=== PATIENT | male | born 1990 | race African-American/Black ===

== ENCOUNTER 2020-04-29 22:56 | Emergency (ER) | payer BC, OTHER ==
[2020-04-29 23:11] VITALS: BP 138/90; PULSE 76; TEMP 97; BMI 27.8
--- NOTE | 2020-04-29 23:43 | PDOC ---
History of Present Illness - General Chief Complaint: Penile Drainage Stated Complaint: EVALUATION Time Seen by Provider: 04/29/20 23:18 History Source: Patient Exam Limitations: No Limitations - History of Present Illness Travel History: No Initial Comments: 04/29/20 23:40 HISTORY OF PRESENT ILLNESS: 30-year-old male presents emergency department for treatment of exposure to syphilis. Patient reports his significant other delivered a child today and was told that she had tested positive for T palladium. RPR confirmatory testing is in progress. Patient denies symptoms. No recent travel or sick contacts. PAST MEDICAL HISTORY: Childhood asthma SURGICAL HISTORY: Denies ALLERGIES: No known drug allergies; seafood REVIEW OF SYSTEMS General/Constitutional: Denies fever or chills. Denies weakness, weight change. HEENT: Denies change in vision. Denies ear pain or discharge. Denies sore throat. Cardiovascular: Denies chest pain or shortness of breath. Respiratory: Denies cough, wheezing, or hemoptysis. Gastrointestinal: Denies nausea, vomiting, diarrhea or constipation. Denies rectal bleeding. Genitourinary: Denies dysuria, frequency, or change in urination. Musculoskeletal: Denies joint or muscle swelling or pain. Denies neck or back pain. Skin and breasts: Denies rash or easy bruising. Neurologic: Denies headache, vertigo, loss of consciousness, or loss of sensation. Psychiatric: Denies depression or anxiety. Endocrine: Denies increased thirst. Denies abnormal weight change. Hematologic/Lymphatic: Denies anemia, easy bleeding, or history of blood clots. Allergic/Immunologic: Denies hives or skin allergy. Denies latex allergy. PHYSICAL EXAM General Appearance: Well-appearing, appropriately dressed. No apparent distress, no intoxication. Genital: Circumcised penis. No discharge or drainage present. No testicular lesions noted. Lymphatic: No adenopathy, tenderness. Past History - Medical History Allergies/Adverse Reactions: Allergies Allergy/AdvReac Type Severity Reaction Status Date / Time SEAFOOD Allergy Uncoded 04/29/20 23:10 Home Medications: Ambulatory Orders Albuterol 0.083% Nebulizer Colleen [Ventolin 0.083% Nebulizer Soln -] 1 neb NEB ONCE PRN #30 neb 04/09/13 Albuterol Sulfate Inhaler - [Ventolin HFA Inhaler -] 1 - 2 inh IH Q4H PRN #1 inhaler 04/09/13 Albuterol Sulfate Inhaler - [Ventolin Hfa *Inhaler*] 2 inh IH Q4H 04/09/13 Beclomethasone Dipropionate 0.25 gm MC BID #1 powder 04/09/13 Diphenhydramine HCl [Benadryl Capsules -] 25 mg PO TID 04/09/13 Asthma: Yes COPD: No - Immunization History Td Vaccination: Yes Immunization Up to Date: Yes - Psycho-Social/Smoking History Smoking Status: No Smoking History: Never smoked Number of Cigarettes Smoked Daily: 0 - Substance Abuse Hx (Audit-C & DAST Scrn) How often the patient has a drink containing alcohol: 2-3 times / week Score: In Men: 4 or > Positive; In Women: 3 or > Positive: 3 Screen Result (Pos requires Nsg. Audit-10AR): Negative *Physical Exam - Vital Signs Last Vital Signs Temp Pulse Resp BP Pulse Ox 97 F L 76 18 138/90 99 04/29/20 23:06 04/29/20 23:06 04/29/20 23:06 04/29/20 23:06 04/29/20 23:06 Medical Decision Making - Medical Decision Making 04/29/20 23:39 A/P: 30-year-old male with STD exposure Patient is requesting treatment for syphilis given known exposure but is requesting additional treatment for gonorrhea and chlamydia at this time. RPR with reflex, HIV, GC Discharge home Portions of this note have been documented using voice recognition software. As a result, errors may occur in the marine propulsion technician process. Effort has been made to correct all grammatical and marine propulsion technician error, but some may have been missed which may produce sporadic inaccurate marine propulsion technician or nonsensical phrases. Discharge - Discharge Information Problems reviewed: Yes Clinical Impression/Diagnosis: Concern about STD in male without diagnosis Condition: Stable Disposition: HOME - Admission No - Follow up/Referral - Patient Discharge Instructions Additional Instructions: You been treated today with azithromycin 1 g by mouth for treatment of presumed chlamydia You have been treated with Rocephin 250 mg injection for treatment of presumned gonorrhea The syphilis test, gonorrhea and chlamydia testing will not be completed for the next few days. You may call [phone] and leave message for return phone call with lab results. Be sure to be clear with your name, birthdate, and phone number Always use condoms with the partners Followup with STAFF PHARMACIST or PMD in one week for reevaluation and retesting. - Post Discharge Activity
[2020-04-29] MEDS ORDERED: AZITHROMYCIN 250 MG TABLET ONE (23:50)
[2020-04-29] MEDS ORDERED: cefTRIAXone SODIUM 1 GM VIAL ONE (23:51)
[2020-04-30] MEDS ORDERED: PENICILLIN G BENZATHINE 2,400,000 UNIT/4 ML PFS IM ONE
[2020-04-30] MEDS ORDERED: AZITHROMYCIN 250 MG TABLET PO ONE
[2020-04-30] MEDS ORDERED: LIDOCAINE HCL 1%, 10 MG/ML (20ML VIAL) ONE (00:07)
== END 2020-04-30 00:15 | disposition home or self-care (01) ==
LOC: JERFT 22:56 → JER 22:56 → JERFT 04-30 00:15
PROC: 3E0234Z Introduction of Serum, Toxoid and Vaccine into Muscle, Percutaneous Approach (ICD-10-PCS; principal; 2020-04-29)
DX: Z20.2 Contact with and (suspected) exposure to infections with a predominantly sexual mode of transmission (principal)
CPT/HCPCS: 36415; 86780; 87389; 87491; 87591; 99284-25

== ENCOUNTER 2021-07-02 20:49 | Emergency (ER) | payer BC ==
[2021-07-02 21:01] VITALS: BMI 25.3
[2021-07-02] MEDS ORDERED: ALBUTEROL SO4 2.5/IPRATROPIUM 0.5 INH SOL 3 ML VIAL.NEB. NEB ONE (21:10)
[2021-07-02] MEDS ORDERED: ALBUTEROL SO4 0.083% IH SOL 2.5 MG/3 ML VIAL.NEB. NEB ONE (22:08)
[2021-07-02 22:51] VITALS: BP 123/79; PULSE 98; TEMP 98.9
== END 2021-07-02 22:53 | disposition home or self-care (01) ==
LOC: JER 20:49 → JERFT 20:49 → JER 22:53
PROC: 3E0F7GC Introduction of Other Therapeutic Substance into Respiratory Tract, Via Natural or Artificial Opening (ICD-10-PCS; principal; 2021-07-02)
DX: J45.909 Unspecified asthma, uncomplicated (principal)
CPT/HCPCS: 99283-25